=== PATIENT | male | born 1965 | race Hispanic/Latino ===

== ENCOUNTER 2016-12-14 15:12 | Inpatient (IN) | payer MEDICAID ==
[2016-12-14 15:12] VITALS: BMI 25.0
--- NOTE | 2016-12-14 16:19 | C.PDOC ---
History Of Present Illness <Stan Faust - Last Filed: 12/14/16 17:25> <Jarrell Chua - Last Filed: 12/15/16 01:56> Patient is a 51 y/o male, with no significant PMHx, presents to the ED requesting detox from alcohol. Pt reports taking Methadone daily. Patient denies any SI/HI, or any other physical complaints at this time. (Stan Faust) History Per: Patient History/Exam Limitations: intoxication Onset/Duration Of Symptoms: Gradual Current Symptoms Are (Timing): Still Present Suicide/Self Injury Attempted (Context): None Modifying Factor(s): Alcohol Severity: None Pain Scale Rating Of: 0 Associated Symptoms: denies: Suicidal Thoughts, Suicidal Plan Involuntary Hold By: None Recent travel outside of the [place]: No Additional History Per: Patient <Stan Faust - Last Filed: 12/14/16 17:25> <Jarrell Chua - Last Filed: 12/15/16 01:56> Time Seen by Provider: 12/14/16 16:18 Chief Complaint (Nursing): Substance Abuse Past Medical History Reviewed: Historical Data, Nursing Documentation, Vital Signs - Medical History PMH: Anxiety, Depression, Diverticulitis Family History: States: Unknown Family Hx - Social History Hx Tobacco Use: Yes Hx Alcohol Use: Yes (quit 2 yrs ago as per pt) Hx Substance Use: No - Immunization History Hx Tetanus Toxoid Vaccination: No Hx Influenza Vaccination: No Hx Pneumococcal Vaccination: No <Stan Faust - Last Filed: 12/14/16 17:25> Review Of Systems Except As Marked, All Systems Reviewed And Found Negative. Constitutional: Negative for: Fever, Chills Cardiovascular: Negative for: Chest Pain, Palpitations Respiratory: Negative for: Cough, Shortness of Breath Gastrointestinal: Negative for: Nausea, Vomiting, Abdominal Pain, Diarrhea Genitourinary: Negative for: Dysuria, Frequency, Hematuria Skin: Negative for: Rash Neurological: Negative for: Weakness, Numbness, Headache, Dizziness Psych: Negative for: Suicidal ideation <Stan Faust - Last Filed: 12/14/16 17:25> Physical Exam - Physical Exam Appears: Non-toxic, No Acute Distress, Other (Intoxicated) Skin: Normal Color, Warm, Dry Head: Atraumatic, Normacephalic Eye(s): bilateral: Normal Inspection, EOMI Neck: Normal ROM, Supple Chest: Symmetrical Extremity: Normal ROM, No Deformity Extremity: Bilateral: Atraumatic Neurological/Psych: Oriented x3, Normal Speech, Normal Cognition <Stan Faust - Last Filed: 12/14/16 17:25> ED Course And Treatment O2 Sat by Pulse Oximetry: 97 (on RA) Pulse Ox Interpretation: Normal Progress Note: Blood work, urinalysis, EKG ordered and reviewed. <Stan Faust - Last Filed: 12/14/16 17:25> - Laboratory Results Result Diagrams: 12/14/16 17:14 12/14/16 17:14 Pulse Ox Interpretation: Normal <Jarrell Chua - Last Filed: 12/15/16 01:56> Disposition <Stan Faust - Last Filed: 12/14/16 17:25> Discussed With : Valentín Adrian Comment: accepted the pt on his service and took over the care at 1:55 AM Doctor Will See Patient In The: Hospital Counseled Patient/Family Regarding: Studies Performed, Diagnosis - Disposition Disposition Time: 01:00 - POA Present On Arrival: None <Jarrell Chua - Last Filed: 12/15/16 01:56> - Disposition Disposition: HOSPITALIZED Condition: FAIR - Clinical Impression Clinical Impression: Alcohol intoxication, Alcohol abuse - Scribe Statement The provider has reviewed the documentation as recorded by the Scribe <Stan Faust - Last Filed: 12/14/16 17:25> <Jarrell Chua - Last Filed: 12/15/16 01:56> - Scribe Statement Kristine Adams All medical record entries made by the Scribe were at my direction and personally dictated by me. I have reviewed the chart and agree that the record accurately reflects my personal performance of the history, physical exam, medical decision making, and the department course for this patient. I have also personally directed, reviewed, and agree with the discharge instructions and disposition. (Stan Faust) Decision To Admit <Stan Faust - Last Filed: 12/14/16 17:25> - Pt Status Changed To: Hospital Disposition Of: Inpatient - Admit Certification Admit to Inpatient:: After my assessment, the patient will require hospitalization for at least two midnights. This is because of the severity of symptoms shown, intensity of services needed, and/or the medical risk in this patient being treated as an outpatient. - InPatient: Physician Admission Certification: I certify that this patient requires 2 or more midnights of care for the following reason:: After my assessment, the patient will require hospitalization for at least two midnights. This is because of the severity of symptoms shown, intensity of services needed, and/or the medical risk in this patient being treated as an outpatient. - . Bed Request Type: Detox Admitting Physician: Valentín Adrian <Jarrell Chua - Last Filed: 12/15/16 01:56> - . Patient Diagnosis: Alcohol intoxication, Alcohol abuse
[2016-12-14 17:25] LABS: BASO # 0.1 K/uL (0.0-0.2); BASO % 0.8 % (0.0-2.0); EOS % 0.6 % (0.0-4.0); HEMOGLOBIN 15.4 g/dL (12.0-18.0); LYMPH # 1.4 K/uL (1.0-4.3); LYMPH % 19.1 % (20.0-40.0); MEAN CELL VOLUME 92.5 fL (80.0-94.0); MEAN CORPUSCULAR HEMOGLOBIN 30.8 pg (27.0-31.0); MEAN CORPUSCULAR HGB CONC 33.3 g/dL (33.0-37.0); MONO # 0.7 K/uL (0.0-0.8); MONO % 9.3 % (0.0-10.0); NEUT % 70.2 % (50.0-75.0); RBC 5.01 Mil/uL (4.40-5.90); RED CELL DISTRIBUTION WIDTH 15.2 % (11.5-14.5); WHITE BLOOD COUNT 7.2 K/uL (4.8-10.8)
[2016-12-14 17:27] LABS: ALBUMIN 4.4 g/dL (3.5-5.0); URINE BILIRUBIN NEGATIVE (NEGATIVE); URINE BLOOD NEGATIVE (NEGATIVE); URINE CLARITY Clear (Clear); URINE COLOR Straw (YELLOW); URINE GLUCOSE (UA) NORMAL (Normal); URINE LEUKOCYTE ESTERASE NEG Leu/uL (Negative); URINE NITRATE NEGATIVE (NEGATIVE); URINE PROTEIN NEGATIVE (NEGATIVE); URINE UROBILINOGEN NORMAL mg/dL (0.2-1.0)
[2016-12-14 17:30] LABS: ALB/GLOB RATIO 1.7 (1.0-2.1); ALT/SGPT 77 U/L (21-72); AST/SGOT 80 U/L (17-59); BLOOD UREA NITROGEN 8 mg/dL (9-20); GFR AFRICAN-AMERICAN > 60; GFR NON-AFRICAN AMERICAN > 60
[2016-12-14 17:31] LABS: CALCIUM 8.9 mg/dl (8.6-10.4)
[2016-12-14 18:18] LABS: BARBITURATES, UR NEGATIVE (NEGATIVE); BENZODIAZEPINES, UR NEGATIVE (NEGATIVE)
[2016-12-14 18:22] LABS: OPIATES, UR NEGATIVE (NEGATIVE); PHENCYCLIDINE, UR NEGATIVE (NEGATIVE)
[2016-12-15] MEDS ORDERED: Aluminum Hydroxide/Magnesium Hydroxide Susp (30 mL) PO PRN (07:20)
[2016-12-15 10:44] VITALS: RESP 18
[2016-12-15] MEDS: Multiple Vitamins Tab PO SCH (11:03)
--- NOTE | 2016-12-15 14:26 | PCM.PSYCH ---
Initial Psychiatric Evaluation - Initial Psychiatric Evaluation Type of Admission: Voluntary Legal Status: Capacity Chief Complaint (in patient's own words): "I need to stop this" History of Present Illness and Precipitating Events: The patient is seen, chart reviewed and case discussed. 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 The patient reports drinking a case of beer for the last few months but he started "many years ago." His longest sobriety was 5 years. He has been to detox 3 times and rehabilitation once at [facility]. He used to go to but not anymore. He reports severe withdrawal symptoms but no seizures in the past. He denies drugs and quit smoking recently. Past psych history: Denies Family psych history: 1 cousin had alcoholism Medical history: BPH with increased PSA, basal cell carcinoma status post resection, disc hernia for which he takes 10 mg methadone as needed once a day. However, he was prescribed 4 times a day which he says he doesn't use. Current Medications: Active Medications Generic Name Dose Route Start Last Admin Trade Name Freq PRN Reason Stop Dose Admin Al Hydrox/Mg Hydrox/Simethicone 30 ml 12/15/16 07:20 12/15/16 10:04 Maalox 30 Ml PO 30 ml TID PRN Administration Indigestion / Heartburn Chlordiazepoxide 25 mg 12/15/16 06:00 12/15/16 11:12 Librium PO 12/19/16 05:59 25 mg Q6 ABBY Administration Taper Chlordiazepoxide 25 mg 12/15/16 03:30 12/15/16 03:36 Librium PO 25 mg Q4H PRN Administration Alcohol Withdrawal Clonidine HCl 0.1 mg 12/15/16 07:19 Catapres PO Q4H PRN Symptoms of alcohol withdrawl Cyclobenzaprine HCl 5 mg 12/15/16 10:32 12/15/16 14:13 Flexeril PO 5 mg Q6H PRN Administration Muscle spasm Folic Acid 1 mg 12/15/16 10:00 12/15/16 11:03 Folic Acid PO Not Given DAILY ABBY Loperamide HCl 2 mg 12/15/16 07:20 12/15/16 14:13 Imodium PO 2 mg Q8 PRN Administration Diarrhea Multivitamins 1 tab 12/15/16 10:00 12/15/16 11:03 Hexavitamin PO Not Given DAILY ABBY Ondansetron HCl 4 mg 12/15/16 07:20 12/15/16 11:12 Zofran Tab PO 4 mg Q8 PRN Administration Nausea/Vomiting Pantoprazole Sodium 20 mg 12/15/16 14:30 Protonix Ec Tab PO DAILY [facility] Pneumococcal Polyvalent Vaccine 0.5 ml 12/18/16 10:15 Pneumovax 23 Vaccine IM 12/18/16 10:16 .ONCE ONE Thiamine HCl 100 mg 12/15/16 10:00 12/15/16 11:03 Vitamin B1 Tab PO Not Given DAILY ABBY Tramadol HCl 50 mg 12/15/16 10:32 12/15/16 14:13 Ultram PO 50 mg Q6H PRN Administration Pain, severe (8-10) Trazodone HCl 50 mg 12/15/16 07:19 Desyrel PO HS PRN Insomnia Past Psychiatric History - Past Psychiatric History Previous Treatment History: None Pertinent Medical Hx (Current Medical&Sleep Prob, Allergies): Allergies Allergy/AdvReac Type Severity Reaction Status Date / Time No Known Allergies Allergy Verified 12/14/16 15:53 Methadone [Methadone HCl] 10 mg PO DAILY 12/14/16 Review of Systems - Neurological Neurological: UNREMARKABLE - Psychiatric Psychiatric: Abnormal Sleep Pattern, Anxiety, Change in Appetite. absent: Hallucinations, Homicidal Ideation, Suicidal Ideation Mental Status Examination - Personal Presentation Personal Presentation: Looks stated age - Affect Affect: Constricted - Motor Activity Motor Activity: Calm - Reliability in Providing Information Reliability in Providing Information: Good - Speech Speech: Organized - Mood Mood: Anxious - Formal Thought Process Formal Thought Process: No Impairment - Cognitive Functions Orientation: Person, Place, Situation, Time Sensorium: Alert Attention/Concentration: Attentive Estimate of Intelligence: Average Judgement: Intact, as evidence by: Insight regarding need for hospitalization Memory: Recent intact, as evidence by: Ability to recall events of the day, Remote intact, as evidenced by: Abilit to recall sig. life events - Risk Risk: Withdrawal, Diminished functioning - Strength & Assets Inventory Strength & Assets Inventory: Cooperative - Limitations Limitations: Other DSM 5 DX - DSM 5 DSM 5 Diagnosis: Alcohol withdrawal Alcohol use d/o - severe - Recommended/Plan of Treatment Treatment Recommendations and Plan of Treatment: Librium detox Gabapentin for augmentation As needed meds and vitamins Attend groups and activities [place] for abstinence and CBT for relapse prevention Support and psychoeducation Consider and encourage MAT ie Carmenl Refer to after care - [facility] around [place], [place] 33 min Projected ELOS: 4-5 days Prognosis: good with treatment Discharge Plan and Discharge Criteria: no wdw sxs - Smoking Cessation Smoking Cessation Initiated: Yes
--- NOTE | 2016-12-15 14:43 | PCM.BM ---
<Bhumi Moy - Last Filed: 12/16/16 12:51> - Milieu Protocol Milieu Narrative: Librium detox Gabapentin for augmentation As needed meds and vitamins Attend groups and activities [place] for abstinence and CBT for relapse prevention Support and psychoeducation Consider and encourage MAT ie Vivitrol Refer to after care - IOP around [place], [place] 33 min Family Contact Family involvement: Famliy/SO not involved - Goals for Treatment Patient goals for treatment: "I wanna stop drinking." Discharge/Continuing Care - Education Needs Education Needs: Patient Medication (regarding relapse prevention meds), Patient Coping Skills (To cope with stress/anxiety to sustain recovery), Patient Community resources (12-step meetings in vicinity) - Discharge Discharge Criteria: Tolerates medication w/o severe side effects, Other, Free of Suicidal thoughts, Free of Homicidal thoughts, Free of paranoid thoughts, Free of agitation, Normal sleep pattern, Ability to care for self, No longer exhibiting s/s of withdrawal, Reduction of target symptoms Discharge to:: Home - Additional Comments Pt. seeking Vivitrol injection to sustain recovery from opiate use disorder- severe. Librium detox Gabapentin for augmentation As needed meds and vitamins Attend groups and activities [place] for abstinence and CBT for relapse prevention Support and psychoeducation Consider and encourage MAT ie Vivitrol Refer to after care - IOP around [place], [place] 33 min 12/16/16 12:57 - Treatment Team Participation Patient/Family/SO Statement: Librium detox Gabapentin for augmentation As needed meds and vitamins Attend groups and activities [place] for abstinence and CBT for relapse prevention Support and psychoeducation Consider and encourage MAT ie Vivitrol Refer to after care - IOP around [place], [place] 33 min Discussed with Family/SO: No Was Patient/Family/SO present at Treatment Team Meeting: Yes <Song Gao - Last Filed: 12/17/16 08:46> - Diagnosis (1) Alcohol abuse Status: Acute Interventions: 12/17/16 08:45 * Assess 7x/week regarding severity of withdrawal * Educate regarding risks, benefits, side effects and alternatives of medications * USe [place] for abstinence * CBT for relapse prevention
[2016-12-15] MEDS: Pantoprazole 20 mg EC Tab PO SCH (17:02)
[2016-12-16] MEDS: Pantoprazole 20 mg EC Tab PO SCH (10:49)
[2016-12-16] MEDS: Multiple Vitamins Tab PO SCH (10:49)
--- NOTE | 2016-12-16 11:42 | PCM.PYCHPN ---
Psychiatric Progress Note - Psychiatric Progress Note Patient seen today, length of contact: 16 min Patient Chief Complaint: "I want to get better and I want to see a urologist here if possible." Problems Identified/Issues Discussed: The pt is seen, chart reviewed, case discussed with staff. The pt is compliant with medications and reports no side-effects. Symptoms are improving but needs more time to stabilize. Patient is sweating but slept well. After care discussed, support and psychoeducation given. Medication Change: Yes (Detox changes daily) Medical Record Reviewed: Yes Mental Status Examination - Cognitive Function Orientation: Person, Place, Situation, Time Memory: Intact Attention: WNL Concentration: Poor Association: WNL Fund of Knowledge: WNL (Worried about his PSA levels.) - Mood Mood: Anxious - Affect Affect: Constricted - Speech Speech: Appropriate - Formal Thought Process Formal Thought Process: No Impairment - Suicidal Ideation Suicidal Ideation: No - Homicidal Ideation Homicidal Ideation: No Goal/Treatment Plan - Goal/Treatment Plan Need for Continued Stay: Remain at risks for inpatient hospitalization, Discharge may exacerbated symptoms, Severe functional impairment Progress Toward Problem(s) and Goals/Treatment Plan: Librium detox Gabapentin for augmentation As needed meds and vitamins Attend groups and activities [place] for abstinence and CBT for relapse prevention Support and psychoeducation Consider and encourage MAT ie Carmenl Refer to after care - [facility] around [place], [place] Follow up with urologist to r/o prostate cancer Estimated Date of D/C: 12/18/16
--- NOTE | 2016-12-16 13:59 | CARD ---
APPROVED REPORT EKG Measurement Heart [id number] <Conclusion> Normal sinus rhythm Normal ECG
[2016-12-16 20:16] VITALS: BP 128/84; PULSE 92; TEMP 97.8; O2SAT 98
--- NOTE | 2016-12-17 08:39 | PCM.PYCHDC ---
Mental Status Examination - Mental Status Examination Orientation: Person, Place, Situation, Time Memory: Impaired Mood: Anxious Affect: Constricted Speech: Appropriate Attention: WNL Concentration: Poor Association: WNL Fund of Knowledge: WNL Formal Thought Process: No Impairment Suicidal Ideation: No Current Homicidal Ideation?: No Discharge Summary - Discharge Note Reason for Hospitalization: Alcohol detox Laboratory Data: PSA checked but it is pending. He left [facility] Consultations:: List each consultation separately and include: 1. Reason for request. 2. Findings. 3. Follow-up Summary of Hospital Course include:: 1. Description of specific treatment plan utilized for patients during their course of treatmen. 2. Summarize the time- course for resolution of acute symptoms and/or regressed behaviors. 3. Describe issues identified and worked on during hospitalization. 4. Describe medication utilized. 5. Describe medical problems identified and treated. 6. Reassessment of suicide risk Summary of Hospital Course: On admission: The patient is seen, chart reviewed and case discussed. 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 The patient reports drinking a case of beer for the last few months but he started "many years ago." His longest sobriety was 5 years. He has been to detox 3 times and rehabilitation once at [facility]. He used to go to but not anymore. He reports severe withdrawal symptoms but no seizures in the past. He denies drugs and quit smoking recently. Past psych history: Denies Family psych history: 1 cousin had alcoholism Medical history: BPH with increased PSA, basal cell carcinoma status post resection, disc hernia for which he takes 10 mg methadone as needed once a day. However, he was prescribed 4 times a day which he says he doesn't use. Hospital course: The pt was admitted and started on treatment with psychotherapy, support, psychoeducation and medications. OR and CBT used. The pt attended some groups and activities, as well as milieu therapy. All the risks and benefits of medications are discussed and the patient understood and agreed. He even asked for naltrexone but his urine was positive for opiates and LFTs were high. They were re-checked Ileana AM but he suddenly decided to leave [facility], claiming his wdw sxs are not well-controlled. He was given extra meds and as per nurses he was not in significant wdw at all when he complained. The pt improved somewhat with the treatments provided but did not complete detox. After care discussed with the patient. IOP recommended, along with AA and Vivitrol when appropriate Risks of leaving early, ie more wdw, seizures and relapse, etc. discussed but he did not agree to stay He was on 40 mg of methadone but only taking 10 mg/d and not even daily he claimed. He is advised to stay away as he may OD due to now low tolerance. He understood. - Final Diagnosis (DSM 5) Condition upon Discharge: IMPROVED Disposition: AGAINST MEDICAL ADVICE Follow-up Treatment Plan: Follow after care plan as discussed: attend IOP, get naltrexone/vivitrol after re-checking urine and LFTs Stay away from methadone as tolerance has decreased Use relapse prevention skills Return to ER or call 911 if suicidal, homicidal or symptoms relapse. Stay away from stress, alcohol and drugs. See primary doctor once a year but first see him this week - Smoking Cessation Smoking Cessation Medication prescribed: No - Antipsychotic Medications Pt discharged on 2 or more routine antipsychotic medications: No
[2016-12-17 20:40] LABS: TOTAL PSA 3.1 ng/mL (<=4.0)
[2016-12-18] MEDS ORDERED: Pneumococcal 23-Valent Vaccine IM ONE (10:15)
== END 2016-12-16 22:33 | disposition left against medical advice (07) | DRG 749 ==
LOC: C.ER 15:12 → C.7D 12-15 01:56
PROVIDERS: ADMIT Psychiatry & Neurology Psychiatry; ATTEND Psychiatry & Neurology Psychiatry
PROC: HZ2ZZZZ Detoxification Services for Substance Abuse Treatment (ICD-10-PCS; principal; 2016-12-15)
DX: F10.230 Alcohol dependence with withdrawal, uncomplicated (principal); F10.229 Alcohol dependence with intoxication, unspecified; Y90.8 Blood alcohol level of 240 mg/100 ml or more; N40.0 Benign prostatic hyperplasia without lower urinary tract symptoms; Z85.828 Personal history of other malignant neoplasm of skin; Z87.891 Personal history of nicotine dependence